=== PATIENT | female | born 1990 | race Caucasian/White ===

== ENCOUNTER 2017-05-04 07:01 | Emergency (ER) | payer SELFPAY ==
[2017-05-04 07:16] VITALS: BP 133/80
[2017-05-04] MEDS ORDERED: CEPHALEXIN 250 MG CAPSULE PO STA (07:24)
[2017-05-04] MEDS ORDERED: LIDOCAINE-EPINEPH-TETRACAINE 3 ML SYRINGE TOP STA (07:25)
--- NOTE | 2017-05-04 07:27 | ED Physician Documentation ---
History of Present Illness - Stated complaint Stated Complaint: TOE PX - Chief complaint Chief Complaint: Ext Problem - Additonal information Additional information: hx from pt 26 y/o f ingrown right toenail now infected denies preg Review of Systems Constitutional: denies: Fever, Chills : denies: Now EGA Musculoskeletal: reports: Extremity pain PD PAST MEDICAL HISTORY - Past Medical History Past Medical History: No - Past Surgical History Past Surgical History: No - Present Medications Home Medications: Ambulatory Orders Medication Instructions Recorded Confirmed Cephalexin [Keflex] 500 mg PO Q6H #28 capsule 05/04/17 Ibuprofen [Motrin] 400 mg PO Q6H PRN #30 tablet 05/04/17 - Allergies Allergies/Adverse Reactions: Allergies Allergy/AdvReac Type Severity Reaction Status Date / Time No Known Drug Allergies Allergy Verified 05/04/17 07:16 - Social History Does the pt smoke?: No Smoking Status: Former smoker PD ED PE NORMAL - Vitals Vital signs reviewed: Yes - Cardiac Cardiac: RRR - Respiratory Respiratory: No respiratory distress, Clear bilaterally - Extremities Extremities: Other (R great toe medial paronychia with surrounding erythema and swelling to distal toe, MSV intact) Results - Vitals Vitals: Vital Signs - 24 hr 05/04/17 07:12 Temperature 37.2 C Heart Rate 94 Respiratory 18 Rate Blood Pressure 133/80 H O2 Saturation 97 Oxygen O2 Source Room air PD MEDICAL DECISION MAKING - ED course ED course: applied LET and then lifted cuticle with scalpel to release some purlent drainage which was cultured - pt tolerated well Departure - Departure Disposition: 01 Home, Self Care Clinical Impression: Ingrown right greater toenail Condition: Good Instructions: ED Toenail Ingrown Infec Abx Onl Prescriptions: Cephalexin [Keflex] 500 mg PO Q6H #28 capsule Ibuprofen [Motrin] 400 mg PO Q6H PRN #30 tablet PRN Reason: Pain Comments: Soak the toe in soapy water and gently push the cuticle back from the nail to release any drainage. And please follow up with your PMD to get your blood pressure rechecked - it was high today Forms: Activity restrictions
[2017-05-04] MEDS ORDERED: LIDOCAINE-EPINEPH-TETRACAINE 3 ML SYRINGE TOP ONE (07:47)
[2017-05-04] MEDS ORDERED: CEPHALEXIN 250 MG CAPSULE PO ONE (07:48)
== END 2017-05-04 09:34 | disposition home or self-care (01) ==
LOC: EDBD → ED 07:01
DX: L60.0 Ingrowing nail (principal); L03.031 Cellulitis of right toe; Z87.891 Personal history of nicotine dependence
CPT/HCPCS: 87070; 87181; 87205; 99283; A9270

== ENCOUNTER 2017-05-14 19:14 | Emergency (ER) | payer SELFPAY ==
[2017-05-14] MEDS ORDERED: BUFFERED LIDOCAINE 10 ML SYRINGE ONE (20:52)
--- NOTE | 2017-05-14 20:53 | ED Physician Documentation ---
PD HPI WOUND RECHECK - Stated complaint Stated Complaint: TOE INFECTION - Chief complaint Chief Complaint: Wound - Histroy obtained from History obtained from: Patient - History of Present Illness Location: Other (Seen here about a week ago for a left ingrown great toenail and placed on Keflex but she is no better. Pain is moderate.) Review of Systems Constitutional: reports: Reviewed and negative Cardiac: reports: Chest pain / pressure Respiratory: reports: Reviewed and negative PD PAST MEDICAL HISTORY - Past Medical History Past Medical History: No - Past Surgical History Past Surgical History: No - Present Medications Home Medications: Ambulatory Orders Medication Instructions Recorded Confirmed Cephalexin [Keflex] 500 mg PO Q6H #28 capsule 05/04/17 Ibuprofen [Motrin] 400 mg PO Q6H PRN #30 tablet 05/04/17 Cephalexin [Keflex] 500 mg PO QID #40 capsule 05/14/17 - Allergies Allergies/Adverse Reactions: Allergies Allergy/AdvReac Type Severity Reaction Status Date / Time No Known Drug Allergies Allergy Verified 05/14/17 19:18 - Social History Does the pt smoke?: No Smoking Status: Never smoker Does the pt drink ETOH?: No Does the pt have substance abuse?: No - Immunizations Immunizations are current?: No - POLST Patient has POLST: No PD ED PE NORMAL - Vitals Vital signs reviewed: Yes - General General: Alert and oriented X 3, No acute distress - Extremities Extremities: Other (Lateral ingrown left great toenail with infection) - Neuro Neuro: Alert and oriented X 3, Normal speech - Psych Psych: Normal mood, Normal affect Results - Vitals Vitals: Vital Signs - 24 hr 05/14/17 19:16 Temperature 36.5 C Heart Rate 78 Respiratory 18 Rate Blood Pressure 112/61 O2 Saturation 100 Oxygen O2 Source Room air Procedures - General procedure General procedure: After verbal consent to the left great toe was blocked with buffered lidocaine in standard fashion with excellent anesthesia in the lateral 1/5 of the nail was removed using electrocautery and blunt dissection and the base was cauterized with silver nitrate. The patient tolerated this very well. Departure - Departure Disposition: 01 Home, Self Care Clinical Impression: Ingrown left greater toenail Condition: Good Record reviewed to determine appropriate education?: Yes Instructions: ED Ingrown Toenail Excised Prescriptions: Cephalexin [Keflex] 500 mg PO QID #40 capsule Comments: Call your doctor to arrange a follow-up appointment, make the next available appointment. In the interim, return anytime if worse or if new symptoms develop.
[2017-05-14 21:24] VITALS: BP 109/63
== END 2017-05-14 21:28 | disposition home or self-care (01) ==
LOC: ED 19:14
DX: L60.0 Ingrowing nail (principal)
CPT/HCPCS: 99283

== ENCOUNTER 2018-04-26 09:07 | Outpatient (CLI) | payer MEDICAID ==
--- NOTE | 2018-04-26 12:43 | Ultrasound Report ---
Reason: ENCOUNTER FOR TEST, RESULT POSITIVE Procedure Date: 04/26/2018 Accession Number: [id number] / [id number] Procedure: US - OB First Trimester CPT Code: FULL RESULT: EXAM: FIRST TRIMESTER OBSTETRIC ULTRASOUND (Less than 11 weeks) EXAM DATE: 04/26/2018 10:14 AM. CLINICAL HISTORY: Encounter for test, result positive. LMP: 02/02/2018. COMPARISONS: None. TECHNIQUE: Transabdominal ultrasound examination with static image documentation. CLINICAL DATES: EGA 11 weeks 6 days with RITA 11/09/2018 based on LMP. ASSESSMENT: Gestational Sac: Single intrauterine. Mean gestational sac diameter: 4.8 mm = greater than 10 weeks. Embryo: CRL (crown-rump length) 5.1 mm = 11 weeks 5 days. Cardiac activity: 174 beats per minute. Yolk sac: 3.1 mm. Amniotic fluid: Not accurately assessed at this gestational age. Early placenta: Posterior. Other: No perigestational fluid collection demonstrated. MATERNAL STRUCTURES: Uterus: Anteverted. Unremarkable. Cervix: Closed. Right Ovary/Adnexa: Not seen. Left Ovary/Adnexa: The ovary measures 3.4 x 2.2 x 2.5 cm, volume 9.7 cc with a 1.5 x 1.7 x 1.5 cm cyst. Free Fluid: None. Unremarkable. Other: None. IMPRESSION: 1. Single viable intrauterine at EGA 11 weeks 5 days with RITA 11/10/2018 based on crown-rump length, which is concordant with clinical dates. 2. Assigned dating is RITA 11 weeks 5 days based on current ultrasound. RADIA
== END 2018-04-26 09:08 | disposition home or self-care (01) ==
LOC: DI 09:07
PROVIDERS: ATTEND Obstetrics & Gynecology
DX: Z32.01 Encounter for pregnancy test, result positive (principal)
CPT/HCPCS: 76801

== ENCOUNTER 2018-05-01 16:42 | Outpatient (CLI) | payer MEDICAID ==
[2018-05-01 17:13] LABS: BASOPHILS % (AUTO) 0.4 %; EOSINOPHILS # (AUTO) 0.1 10^3/uL (0.0-0.7); EOSINOPHILS % (AUTO) 1.2 %; HGB - HEMOGLOBIN 12.6 g/dL (12.0-16.0); LYMPHOCYTES # (AUTO) 2.8 10^3/uL (1.5-3.5); LYMPHOCYTES % (AUTO) 26.8 %; MEAN CORPUSCULAR HEMOGLOBIN 27.7 pg (27.0-31.0); MEAN CORPUSCULAR HGB CONC 34.3 g/dL (32.0-36.0); MEAN CORPUSCULAR VOLUME 80.7 fL (81.0-99.0); MEAN PLATELET VOLUME 8.1 fL (7.9-10.8); MONOCYTES # (AUTO) 0.9 10^3/uL (0.0-1.0); MONOCYTES % (AUTO) 8.5 %; NEUTROPHILS # (AUTO) 6.6 10^3/uL (1.5-6.6); NEUTROPHILS % (AUTO) 63.1 %; PLT - PLATELET COUNT 186 10^3/uL (130-450); RED BLOOD COUNT 4.55 10^6/uL (4.20-5.40); WHITE BLOOD COUNT 10.4 x10^3/uL (4.8-10.8)
[2018-05-01 17:16] LABS: BILIRUBIN,URINE NEGATIVE (NEGATIVE); GLUCOSE, URINE (UA) NEGATIVE (NEGATIVE); KETONES,URINE (UA) NEGATIVE (NEGATIVE); LEUKOCYTE ESTERASE, URINE LARGE (NEGATIVE); NITRITE,URINE NEGATIVE (NEGATIVE); OCCULT BLOOD,URINE LARGE (NEGATIVE); PROTEIN,URINE NEGATIVE (NEGATIVE); UROBILINOGEN,URINE 0.2 (NORMAL) E.U./dL (NORMAL)
[2018-05-01 17:21] LABS: CLARITY,URINE SL. CLOUDY (CLEAR)
[2018-05-01 17:28] LABS: BACTERIA,URINE Many /HPF (None Seen); RBC,URINE TNTC /HPF (0-5); SQUAMOUS EPITHELIAL CELL,UR FEW Squamous (<= Few); WBC CLUMPS,URINE PRESENT
[2018-05-02 10:57] LABS: HEPATITIS B SURFACE ANTIGEN NON-REACTIVE (NON-REACTIVE)
[2018-05-02 13:48] LABS: HEPATITIS C ANTIBODY NON-REACTIVE (NON-REACTIVE)
[2018-05-02 14:11] LABS: HIV AG/AB 4TH GEN NON-REACTIVE (NON-REACTIVE)
== END 2018-05-01 16:43 | disposition home or self-care (01) ==
LOC: LAB 16:42
PROVIDERS: ATTEND Registered Nurse
DX: Z36.9 Encounter for antenatal screening, unspecified (principal)
CPT/HCPCS: 36415; 81001; 81599; 85025; 86592; 86762; 86803; 86850; 86900; 86901; 87340; 87389

== ENCOUNTER 2018-06-01 08:00 | Outpatient (CLI) | payer MEDICAID | END 2018-06-01 08:01 | disposition home or self-care (01) | LOC: LAB.R 08:00 | PROVIDERS: ATTEND Nurse Practitioner Obstetrics & Gynecology | DX: R31.9 Hematuria, unspecified (principal) | CPT/HCPCS: 87086 ==

== ENCOUNTER 2018-06-18 12:21 | Outpatient (CLI) | payer MEDICAID ==
--- NOTE | 2018-06-18 16:11 | Ultrasound Report ---
Reason: ENCTR FOR SCREENING Procedure Date: 06/18/2018 Accession Number: [id number] / [id number] Procedure: US - OB Detailed Eval CPT Code: FULL RESULT: EXAM: COMPLETE OBSTETRICAL ULTRASOUND EXAM DATE: 06/18/2018 03:26 PM. CLINICAL HISTORY: anatomic survey. COMPARISON: 04/26/2018. TECHNIQUE: Real-time sonographic evaluation of the fetus performed by the laminator preforms. Multiple sales representative womens health static images were saved for review. DATING: Established EGA 19 weeks 3 days with RITA 11/09/2018 based on LMP. EGA 19 weeks 2 days with RITA 11/10/2018based on initial ultrasound 04/26/2018. EGA 19 weeks 6 days with RITA 11/06/2018based on the current ultrasound. GENERAL EVALUATION Mckee . Cardiac activity: 147 bpm. movement: Visualized. Presentation: Variable. Placenta: Posterior fundal position. No evidence for previa. Umbilical cord: Three-vessel cord not clearly identified. Eccentric placental cord origin, between 1 and 2 cm from placental edge. Amniotic fluid: Subjectively normal. SAM:18.1 cm. MVP 5.8 cm. BIOMETRY Bi-Parietal Diameter (BPD): 4.78 cm, 23 weeks 3 days. Head Circumference (HC): 17.2 cm, 19 weeks 5 days. Abdominal Circumference (AC): 15.2 cm, 20 weeks 4 days. Femur Length (FL): 2.8 cm, 18 weeks 4 days. Estimated Weight: 310 g, percentile for weeks/days. ANATOMY The intracranial structures, profile, face/nose/lips, spine, 4 chamber heart and outflow tracts, stomach, abdominal wall and cord insertion, diaphragm, kidneys, bladder, and extremities were visualized and demonstrate no abnormality. MATERNAL STRUCTURES Uterus: Unremarkable. Cervix: Long and closed. Transabdominal length 4.4 cm. Right ovary/adnexa: Unremarkable. Left ovary/adnexa: Unremarkable. Free fluid: None. IMPRESSION: 1. Mckee live intrauterine with gestational age 19 weeks 3 days. Based on LMP. 2. Estimated weight is within expected limits for assigned dating. 3. Normal anatomic survey. No anatomic abnormalities are detected at this time. 4. Eccentric cord insertion noted, with three-vessel cord not clearly identified on today's exam. RADIA
== END 2018-06-18 12:22 | disposition home or self-care (01) ==
LOC: DI 12:21
PROVIDERS: ATTEND Nurse Practitioner Obstetrics & Gynecology
DX: Z36.9 Encounter for antenatal screening, unspecified (principal)
CPT/HCPCS: 76811

== ENCOUNTER 2018-07-20 14:16 | Outpatient (CLI) | payer MEDICAID | END 2018-07-20 23:59 | LOC: LAB.R 14:16 | PROVIDERS: ATTEND Nurse Practitioner Obstetrics & Gynecology | DX: Z11.3 Encounter for screening for infections with a predominantly sexual mode of transmission (principal) | CPT/HCPCS: 87491; 87591 ==

== ENCOUNTER 2018-07-22 07:24 | Outpatient (CLI) | payer MEDICAID ==
[2018-07-22 08:53] LABS: BASOPHILS % (AUTO) 0.3 %; EOSINOPHILS # (AUTO) 0.2 10^3/uL (0.0-0.7); EOSINOPHILS % (AUTO) 1.8 %; HGB - HEMOGLOBIN 11.9 g/dL (12.0-16.0); LYMPHOCYTES # (AUTO) 2.4 10^3/uL (1.5-3.5); LYMPHOCYTES % (AUTO) 27.1 %; MEAN CORPUSCULAR HEMOGLOBIN 29.4 pg (27.0-31.0); MEAN CORPUSCULAR HGB CONC 34.4 g/dL (32.0-36.0); MEAN CORPUSCULAR VOLUME 85.3 fL (81.0-99.0); MEAN PLATELET VOLUME 8.5 fL (7.9-10.8); MONOCYTES # (AUTO) 0.5 10^3/uL (0.0-1.0); MONOCYTES % (AUTO) 5.8 %; NEUTROPHILS # (AUTO) 5.7 10^3/uL (1.5-6.6); PLT - PLATELET COUNT 162 10^3/uL (130-450); RED BLOOD COUNT 4.06 10^6/uL (4.20-5.40); RED CELL DISTRIBUTION WIDTH 16.7 % (12.0-15.0); WHITE BLOOD COUNT 8.8 x10^3/uL (4.8-10.8)
== END 2018-07-22 07:25 | disposition home or self-care (01) ==
LOC: LAB 07:24
PROVIDERS: ATTEND Nurse Practitioner Obstetrics & Gynecology
DX: Z36.89 Encounter for other specified antenatal screening (principal)
CPT/HCPCS: 36415; 82950; 85025; 86850

== ENCOUNTER 2018-07-23 08:01 | Outpatient (CLI) | payer MEDICAID | END 2018-07-23 08:02 | disposition home or self-care (01) | LOC: LAB 08:01 | PROVIDERS: ATTEND Nurse Practitioner Obstetrics & Gynecology | DX: O99.810 Abnormal glucose complicating pregnancy (principal) | CPT/HCPCS: 36415; 82951; 82952 ==

== ENCOUNTER 2018-08-12 09:23 | Outpatient (CLI) | payer MEDICAID ==
--- NOTE | 2018-08-12 11:42 | Ultrasound Report ---
Reason: Procedure Date: 08/12/2018 Accession Number: [id number] / [id number] Procedure: US - OB F/U or Repeat CPT Code: FULL RESULT: EXAM: COMPLETE OBSTETRICAL ULTRASOUND EXAM DATE: 08/12/2018 09:52 AM. CLINICAL HISTORY: Completion anatomy survey. Previously incomplete evaluation of the cord. COMPARISON: 06/18/2018. TECHNIQUE: Real-time sonographic evaluation of the fetus performed by the shift mgr. Multiple veterans contact representative static images were saved for review. DATING: Established EGA 27 weeks 2 days with RITA 11/09/2018 based on the referring provider. GENERAL EVALUATION Mckee . Cardiac activity: 140 bpm. movement: Visualized. Presentation: Cephalic. Placenta: Posterior position. No evidence for previa. Umbilical cord: 3 vessel cord. Central placental cord origin. Amniotic fluid: SAM 13.8 MVP 4.3 cm. ANATOMY Normal 3 vessel cord. MATERNAL STRUCTURES Uterus: Visualized portions are unremarkable. Free fluid: None. IMPRESSION: 1. Mckee live intrauterine with gestational age 27 weeks 2 days based on obstetric provider information. 2. Normal 3 vessel cord. RADIA
== END 2018-08-12 09:24 | disposition home or self-care (01) ==
LOC: DI 09:23
PROVIDERS: ATTEND Nurse Practitioner Obstetrics & Gynecology
DX: Z33.1 Pregnant state, incidental (principal)
CPT/HCPCS: 76816

== ENCOUNTER 2018-10-01 11:10 | Outpatient (CLI) | payer MEDICAID ==
--- NOTE | 2018-10-01 16:24 | Ultrasound Report ---
Reason: UTERINE SIZE DATE DISCREPANCY,ANTEPARTUM,UNSPECIFI Procedure Date: 10/01/2018 Accession Number: [id number] / [id number] Procedure: US - OB F/U or Repeat CPT Code: FULL RESULT: EXAM: FOLLOW-UP OBSTETRICAL ULTRASOUND EXAM DATE: 10/01/2018 12:45 PM. CLINICAL HISTORY: UTERINE SIZE DATE DISCREPANCY,ANTEPARTUM,UNSPECIFI. COMPARISON: 04/26/2018. TECHNIQUE: Real-time sonographic evaluation of the fetus performed by the director technical. Multiple claims customer service representative static images were saved for review. DATING: Established EGA 34 weeks 3 days with RITA 11/09/2018 based on LMP. EGA 34 weeks 2 days with RITA 11/10/2018 based on prior ultrasound of 04/26/2018. EGA 35 weeks 1 day with RITA 11/04/2018 based on the current ultrasound. GENERAL EVALUATION Mckee . Cardiac activity: 159 bpm. movement: Present Presentation: Cephalic. Placenta: Posterior fundal position. Amniotic fluid: Normal. SAM 16 cm. MVP 6 cm. BIOMETRY Bi-Parietal Diameter (BPD): 9.6 cm, 39 weeks 2 days Head Circumference (HC): 31.7 cm, 35 weeks 4 days Abdominal Circumference (AC): 30.7 cm, 34 weeks 4 days Femur Length (FL): 6.8 cm, 34 weeks 5 days Estimated Weight: 2625 g, 68th percentile for 35 weeks 1 day. ANATOMY Not assessed today. MATERNAL STRUCTURES Not assessed today IMPRESSION: 1. Mckee intrauterine with gestational age 34 weeks 3 days based on LMP. 2. Estimated weight is within expected limits for assigned dating. 3. Normal interval growth compared to 04/26/2018. EMANUELA
== END 2018-10-01 11:11 | disposition home or self-care (01) ==
LOC: DI 11:10
PROVIDERS: ATTEND Nurse Practitioner Obstetrics & Gynecology
DX: O26.849 Uterine size-date discrepancy, unspecified trimester (principal); Z3A.34 34 weeks gestation of pregnancy
CPT/HCPCS: 76816

== ENCOUNTER 2018-10-16 08:00 | Outpatient (CLI) | payer MEDICAID | END 2018-10-16 23:59 | disposition home or self-care (01) | LOC: LAB.R 08:00 | PROVIDERS: ATTEND Registered Nurse | DX: Z34.90 Encounter for supervision of normal pregnancy, unspecified, unspecified trimester (principal) | CPT/HCPCS: 87480; 87491; 87510; 87591; 87660; 87797 ==

== ENCOUNTER 2018-10-18 08:34 | Outpatient (CLI) | payer MEDICAID ==
[2018-10-18 09:02] LABS: BILIRUBIN,URINE NEGATIVE (NEGATIVE); GLUCOSE, URINE (UA) NEGATIVE (NEGATIVE); KETONES,URINE (UA) NEGATIVE (NEGATIVE); LEUKOCYTE ESTERASE, URINE SMALL (NEGATIVE); NITRITE,URINE NEGATIVE (NEGATIVE); OCCULT BLOOD,URINE NEGATIVE (NEGATIVE); PH,URINE 6.5 PH (5.0-7.5); PROTEIN,URINE NEGATIVE (NEGATIVE); UROBILINOGEN,URINE 0.2 (NORMAL) E.U./dL (NORMAL)
[2018-10-18 09:04] LABS: BASOPHILS % (AUTO) 0.3 %; EOSINOPHILS # (AUTO) 0.1 10^3/uL (0.0-0.7); EOSINOPHILS % (AUTO) 1.7 %; HGB - HEMOGLOBIN 11.8 g/dL (12.0-16.0); LYMPHOCYTES # (AUTO) 2.5 10^3/uL (1.5-3.5); LYMPHOCYTES % (AUTO) 33.8 %; MEAN CORPUSCULAR HGB CONC 32.8 g/dL (32.0-36.0); MEAN CORPUSCULAR VOLUME 82.4 fL (81.0-99.0); MEAN PLATELET VOLUME 9.3 fL (7.9-10.8); MONOCYTES # (AUTO) 0.6 10^3/uL (0.0-1.0); MONOCYTES % (AUTO) 8.2 %; NEUTROPHILS # (AUTO) 4.2 10^3/uL (1.5-6.6); PLT - PLATELET COUNT 139 10^3/uL (130-450); RED BLOOD COUNT 4.38 10^6/uL (4.20-5.40); RED CELL DISTRIBUTION WIDTH 17.3 % (12.0-15.0); WHITE BLOOD COUNT 7.4 x10^3/uL (4.8-10.8)
[2018-10-18 09:10] LABS: CREATININE,URINE 53.5 mg/dL; PROTEIN/CREATININE RATIO,URINE 0.1 (<=0.2)
[2018-10-18 09:13] LABS: CREATININE 0.4 mg/dL (0.4-1.0); URIC ACID 4.1 mg/dL (2.6-7.2)
[2018-10-18 09:29] LABS: BACTERIA,URINE Rare /HPF (None Seen); CLARITY,URINE HAZY (CLEAR); RBC,URINE None Seen /HPF (0-5); SQUAMOUS EPITHELIAL CELL,UR MOD Squamous (<= Few)
[2018-10-20 14:15] LABS: HEPATITIS C ANTIBODY NON-REACTIVE (NON-REACTIVE)
[2018-10-20 15:12] LABS: HIV AG/AB 4TH GEN NON-REACTIVE (NON-REACTIVE)
== END 2018-10-18 08:35 | disposition home or self-care (01) ==
LOC: LAB 08:34
PROVIDERS: ATTEND Registered Nurse
DX: Z34.90 Encounter for supervision of normal pregnancy, unspecified, unspecified trimester (principal); R03.0 Elevated blood-pressure reading, without diagnosis of hypertension
CPT/HCPCS: 36415; 81001; 81599; 82565; 82570; 83615; 84156; 84450; 84550; 85025; 85027; 86803; 87086; 87389

== ENCOUNTER 2018-10-30 10:06 | Outpatient (CLI) | payer MEDICAID ==
[2018-10-30 10:48] LABS: BASOPHILS % (AUTO) 0.4 %; EOSINOPHILS # (AUTO) 0.1 10^3/uL (0.0-0.7); EOSINOPHILS % (AUTO) 1.8 %; LYMPHOCYTES # (AUTO) 2.6 10^3/uL (1.5-3.5); LYMPHOCYTES % (AUTO) 34.3 %; MEAN CORPUSCULAR HEMOGLOBIN 27.7 pg (27.0-31.0); MEAN CORPUSCULAR HGB CONC 33.3 g/dL (32.0-36.0); MEAN PLATELET VOLUME 9.1 fL (7.9-10.8); MONOCYTES # (AUTO) 0.7 10^3/uL (0.0-1.0); MONOCYTES % (AUTO) 8.8 %; NEUTROPHILS # (AUTO) 4.1 10^3/uL (1.5-6.6); NEUTROPHILS % (AUTO) 54.7 %; PLT - PLATELET COUNT 138 10^3/uL (130-450); RED BLOOD COUNT 4.33 10^6/uL (4.20-5.40); WHITE BLOOD COUNT 7.5 x10^3/uL (4.8-10.8)
[2018-10-30 11:32] LABS: CREATININE,URINE 105.1 mg/dL; PROTEIN/CREATININE RATIO,URINE 0.2 (<=0.2)
[2018-10-30 12:03] VITALS: BP 120/76
== END 2018-10-30 12:15 | disposition home or self-care (01) ==
LOC: WFO 10:06 → FBP 10:07 → WFO 12:15
PROVIDERS: ATTEND Registered Nurse
DX: O16.3 Unspecified maternal hypertension, third trimester (principal); Z3A.38 38 weeks gestation of pregnancy
CPT/HCPCS: 36415; 59025; 82570; 83615; 84156; 84450; 84550; 85025

== ENCOUNTER 2018-11-02 08:37 | Inpatient (IN) | payer MEDICAID ==
[2018-11-02] MEDS ORDERED: OXYTOCIN/SODIUM CHLORIDE 500 ML IV PRN (08:52)
[2018-11-02] MEDS ORDERED: SODIUM CHLORIDE FLUSH 0.9% 10 ML SYRINGE IVP PRN (08:52)
[2018-11-02] MEDS ORDERED: ONDANSETRON 4 MG/2 ML VIAL IVP PRN (08:52)
[2018-11-02] MEDS ORDERED: fentaNYL 100 MCG/2 ML VIAL IVP PRN (08:52)
--- NOTE | 2018-11-02 08:59 | HISTORY & PHYSICAL EXAMINATION ---
Admit History - Visit Reason Visit Reason: Other (logistic induction of labor @ 39 weeks' gestation, per pt request) - : 1 Parity: 0 Premature: 0 Ectopic: 0 : 0 Care: positive: [facility] Risk/History: positive: None Complications This : positive: None Smoking Status: Never smoker - Mother's Labs Mother's Blood Type: positive: A Mother's RH: positive: Positive GBS: positive: Group B Step Negative Rubella Status: positive: Immune Meds/Allgy - Home Medications Home Medications: Ambulatory Orders Medication Instructions Recorded Confirmed Cephalexin [Keflex] 500 mg PO Q6H #28 capsule 05/04/17 Ibuprofen [Motrin] 400 mg PO Q6H PRN #30 tablet 05/04/17 Cephalexin [Keflex] 500 mg PO QID #40 capsule 05/14/17 - Allergies Allergies/Adverse Reactions: Allergies Allergy/AdvReac Type Severity Reaction Status Date / Time No Known Drug Allergies Allergy Verified 05/14/17 19:18 Review of Systems - Constitutional Constitutional: reports: Fatigue. denies: Fever, Chills - Eyes Eyes: denies: Blurred vision, Spots in vision, Dipolpia - Cardiovascular Cariovascular: reports: Edema. denies: Irregular heart rate, Palpitations, Chest pain - Respiratory Respiratory: reports: SOB with exertion. denies: Cough, SOB at rest - Gastrointestinal Gastrointestinal: denies: Abdominal pain, Abdominal distention, Constipation, Diarrhea, Nausea, Vomiting - Musculoskeletal Musculoskeletal: reports: Back pain. denies: Muscle pain, Muscle aches - Integumentary Integumentary: denies: Rash, Pruritis, Lesions - Neurological Neurological: denies: General weakness, Focal weakness, Headache, Dizziness - Psychiatric Psychiatric: denies: Depression, Anxiety - All Other Systems All Other Systems: reports: Reviewed and negative Physical - Abdominal Exam Vital Signs: BP 115/73, HR 92 RR 18 Contraction Frequency (min/apart): rare - Monitoring Heart Rate Baseline: 145 Strip Review: positive: Category I - Presentation Presentation: positive: Vertex - Vaginal Exam Membranes: positive: Membranes intact Dilation (in cm): 2 Effacement (%): 70 Station: positive: 0 Cervical Position: positive: Posterior - Speculum Exam Speculum Exam Performed: positive: No Findings: negative: Gross leak - Other Notes Labor Progress Note/Additional Text: Rebekah Jacki Duran is a 28 y/o @ 39 weeks' gestation by first trimester US who received consistent, regular care beginning in the first trimester. Her care was complicated by first trimester trichomoniasis, which was treated effectively for both her & her partner, and which resulted in negative SAGRARIO, and by intermittent BP elevations which have not been persistent and which have not been associated w/ any s/sx of PET; she has had antepartum surveillance for the intermittently elevated BPs, both at [facility] & at [facility] when she could not be accommodated in this setting, and all has been reassuring. Her screening labs have all been WNL, including negative GBS screening @ 36 weeks' gestation. She presents today for a scheduled induction of labor, which she discussed initially w/ Suze Figueroa CNM, and which she discussed more recently w/ myself. Full PARQ was held & she is aware of option of ongoing expectant management and lack of medical rationale for intervention. Informed consent was obtained for misoprostol induction of labor & she desires to proceed. PMH: UNREMARKABLE PSH: none OBhx: Primiparous GYNhx: trichomoniasis 2018 w/ effective tx & negative SAGRARIO, no other hx STI, no hx abnormal pap; normal 2018 Sochx: to Clifford, denies DV; unemployed, denies financial concerns; ESL (Haitian is her first language)--highly proficient in Armenian but may benefit from use of creative consultant phone, as would her ; denies ETOH/tobacco/drugs Famhx: non-contributory Plan for Labor - Plan For Labor I expect patient to be DC'd or transferred within 96 hours.: Yes Plan for Labor: 1. Admit for preinduction cervical ripening w/ misoprostol 2. CBC/CMP/clot to hold/IV insert; NO MAINTENANCE FLUIDS unless NPO 3. Misoprostol 50mcg BC q 4 hours 4. Assess cervical status w/ clinical change
[2018-11-02] MEDS: miSOPROStol 100 MCG TABLET BC SCH ×4 (09:41→22:42)
[2018-11-02] MEDS: SODIUM CHLORIDE FLUSH 0.9% 10 ML SYRINGE IVP SCH ×2 (09:42→17:10)
[2018-11-02 09:54] LABS: BASOPHILS % (AUTO) 0.4 %; EOSINOPHILS # (AUTO) 0.1 10^3/uL (0.0-0.7); EOSINOPHILS % (AUTO) 1.3 %; HGB - HEMOGLOBIN 11.9 g/dL (12.0-16.0); LYMPHOCYTES # (AUTO) 2.4 10^3/uL (1.5-3.5); MEAN CORPUSCULAR HEMOGLOBIN 27.7 pg (27.0-31.0); MEAN CORPUSCULAR HGB CONC 33.2 g/dL (32.0-36.0); MEAN CORPUSCULAR VOLUME 83.4 fL (81.0-99.0); MEAN PLATELET VOLUME 9.3 fL (7.9-10.8); MONOCYTES # (AUTO) 0.5 10^3/uL (0.0-1.0); MONOCYTES % (AUTO) 6.7 %; NEUTROPHILS # (AUTO) 4.4 10^3/uL (1.5-6.6); NEUTROPHILS % (AUTO) 59.6 %; PLT - PLATELET COUNT 138 10^3/uL (130-450); RED CELL DISTRIBUTION WIDTH 18.6 % (12.0-15.0); WHITE BLOOD COUNT 7.4 x10^3/uL (4.8-10.8)
[2018-11-02 10:03] LABS: ALBUMIN 3.2 g/dL (3.2-5.5); ALBUMIN/GLOBULIN RATIO 1.1 (1.0-2.2); BILIRUBIN,TOTAL 0.4 mg/dL (0.2-1.0); CALCIUM 9.2 mg/dL (8.5-10.3); CREATININE 0.6 mg/dL (0.4-1.0); TOTAL PROTEIN 6.2 g/dL (6.7-8.2)
[2018-11-02 10:21] LABS: BILIRUBIN,URINE NEGATIVE (NEGATIVE); GLUCOSE, URINE (UA) NEGATIVE (NEGATIVE); KETONES,URINE (UA) NEGATIVE (NEGATIVE); LEUKOCYTE ESTERASE, URINE NEGATIVE (NEGATIVE); NITRITE,URINE NEGATIVE (NEGATIVE); OCCULT BLOOD,URINE NEGATIVE (NEGATIVE); PROTEIN,URINE NEGATIVE (NEGATIVE); UROBILINOGEN,URINE 0.2 (NORMAL) E.U./dL (NORMAL)
[2018-11-02 10:23] LABS: CREATININE,URINE 77.8 mg/dL; PROTEIN/CREATININE RATIO,URINE 0.1 (<=0.2)
[2018-11-02 10:24] LABS: CLARITY,URINE CLEAR (CLEAR)
--- NOTE | 2018-11-02 12:31 | PROVIDER PROGRESS NOTE ---
Labor Progress Note - Uterine Monitoring Uterine Monitoring Mode: positive: External toco Contraction Frequency (min/apart): 2-6 Contraction Intensity: positive: Mild Uterine Resting Tone: positive: Soft - Monitoring Monitor Mode: positive: External ultrasound Heart Rate Baseline: 145 Heart Rate Variability: positive: Moderate (6-25 bmp) Accelerations: positive: Present, 15x15 Decelerations: positive: None Strip Review: positive: Category I - Labor Progress Note Labor Progress Note/Additional Text: S: Rebekah is doing well. She reports occasional sensation of cramping & some abdominal tightening. She denies true discomfort. She denies LOF/VB. She does not desire any analgesia @ this time. She is tolerating a regular diet & is tired of lying in bed. Clifford is present @ the bedside & is involved & very supportive. O: AAOx3, NAD WA gravid female VSS EFM: BL 145bpm, +accels, no decels, mod daniela TOCO: UCs erratic q 2-6 min, palp mod SVE deferred A: 28 y/o @ 39 weeks' gestation by first trimester US Preinduction cervical ripening for IOL secondary to pt request 39+ weeks, s/p 1 dose of 50mcg buccal misoprostol GBS negative w/ IBOW FHTs cat I Adequate pain control w/o analgesia/anesthesia P: 1. Continue buccal misoprostol as ordered 2. reviewed relief measures for discomfort, diversionary activity 3. reviewed optimal maternal positioning 4. pt aware of all pain management options, will request as desired 5. SVE only if clearly clinically indicated
[2018-11-02] MEDS ORDERED: DOCUSATE SODIUM 250 MG CAPSULE PO ONE (14:30)
[2018-11-02] MEDS ORDERED: POLYETHYLENE GLYCOL 3350 17 GM PACKET PO PRN (16:18)
--- NOTE | 2018-11-02 16:49 | PROVIDER PROGRESS NOTE ---
Labor Progress Note - Uterine Monitoring Uterine Monitoring Mode: positive: External toco Contraction Frequency (min/apart): 2-6 Contraction Intensity: positive: Mild Uterine Resting Tone: positive: Soft - Monitoring Monitor Mode: positive: External ultrasound Heart Rate Baseline: 140 Heart Rate Variability: positive: Moderate (6-25 bmp) Accelerations: positive: Present, 15x15 Decelerations: positive: None Strip Review: positive: Category I - Vaginal Exam Dilation (in cm): deferred secondary to no indication - Labor Progress Note Labor Progress Note/Additional Text: S: Rebekah reports mild cramping & a desire to defecate. She has been constipated x4 days & desires stool softener for use now. Her friends & Clifford are present @ the bedside & are involved & very supportive. O: AAox3, NAD WA gravid female VSS EFM: Bl 140bpm, +accels, no decels, mod daniela TOCO: UCs q 2-6 minutes, palp mild SVE deferred A: 28 y/o @ 39 weeks' gestation by first trimester US Preinduction cervical ripening for IOL, logistic, per pt request GBS negative, IBOW, afebrile s/p 2 doses buccal misoprostol, not in labor, erratic uterine contractions FHTs cat I Adequate pain control w/o analgesia/anesthesia P: 1. Reviewed options for management going forward, plans 3rd dose of misoprostol & plans to decide thereafter 2. May elect to sleep overnight or continue misoprostol or alternate cervical ripening method: aware of cervidil, peterson bulb options 3. Aware of pain management options, will request as desired 4. colace 250mg po now 5. Reviewed plan of care w/ pt, partner & RN @ bedside; all in agreement, without concerns
--- NOTE | 2018-11-02 22:43 | PROVIDER PROGRESS NOTE ---
Labor Progress Note - Uterine Monitoring Uterine Monitoring Mode: positive: External toco Contraction Frequency (min/apart): 2-5 Contraction Intensity: positive: Moderate Uterine Resting Tone: positive: Soft - Monitoring Monitor Mode: positive: External ultrasound Heart Rate Baseline: 140 Heart Rate Variability: positive: Moderate (6-25 bmp) Accelerations: positive: Present, 15x15 Decelerations: positive: None Strip Review: positive: Category I - Vaginal Exam Dilation (in cm): deferred - Labor Progress Note Labor Progress Note/Additional Text: S: Rebekah is generally comfortable, although she reports enough cramping w/ her uterine contractions that she expects she will have difficulty sleeping. She denies LOF/VB. She is hoping to be able to sleep this evening; she was able to have a bowel movement & feels better as a result O: AAOx3, NAD WA gravid female VSS EFM: BL 140 +accels, no decels, mod daniela TOCO: UCs q2-5 min SVE deferred secondary to no indication A: 28 y/o @ 39w0d by first trimester US, induction of labor per pt request Preinduction cervical ripening s/p 3 doses 50mcg buccal misoprostol, not in labor GBS neg, IBOW, afebrile FHTs cat I Adequate pain control w/o analgesia/anesthesia Desires rest P: 1. Reviewed all options for management @ this time; pt desires rest overnight; FHTs consistently Cat I, will d/c monitoring; BP stable, will d/c vitals overnight & check only if awake; will administer 50mg IM hydroxyzine for sleep, PARQ held 2. Reviewed labor physiology & possibility that she may enter spontaneous labor overnight 3. Encouraged maternal rest & reviewed optimal positioning 4. Reassess status in am & will determine optimal course of ongoing careplan @ that time; reassess earlier PRN 5. Reviewed plan of care w/ pt, partner & RN @ bedside; all in agreement, without concerns.
[2018-11-03] MEDS: SODIUM CHLORIDE FLUSH 0.9% 10 ML SYRINGE IVP SCH (03:35)
[2018-11-03] MEDS: miSOPROStol 100 MCG TABLET BC SCH ×2 (03:36→11:09)
[2018-11-03] MEDS ORDERED: LACTATED RINGERS 1,000 ML IV ONE (05:01)
[2018-11-03] MEDS ORDERED: LACTATED RINGERS 500 ML IV ONE ×2 (05:10→05:34)
[2018-11-03] MEDS ORDERED: BUPIVACAINE 0.25% PF 10 ML VIAL ONE (05:31)
[2018-11-03] MEDS ORDERED: fent/BUPIV 2 MCG/0.125% 250 ML EP ONE (05:31)
--- NOTE | 2018-11-03 05:31 | ANESTHESIA ---
Pre-Anesthesia VS, & Labs - Diagnosis Active Labor - Procedure Vaginal delivery Height 5 ft 5 in Weight (kg) 95.254 kg Body Mass Index 29.2 - NPO Other - Is Patient ?: Yes - Lab Results Current Lab Results: Laboratory Tests 11/02/18 09:35: Sodium 132 L, Potassium 3.6, Chloride 105, Carbon Dioxide 19 L, Anion Gap 8.0, BUN 13, Creatinine 0.6, Estimated GFR (MDRD) 120, Glucose 122 H, Calcium 9.2, Total Bilirubin 0.4, AST 22, ALT 15, Alkaline Phosphatase 149 H, Total Protein 6.2 L, Albumin 3.2, Globulin 3.0, Albumin/Globulin Ratio 1.1 11/02/18 09:35: WBC 7.4, RBC 4.30, Hgb 11.9 L, Hct 35.8 L, MCV 83.4, MCH 27.7, MCHC 33.2, RDW 18.6 H, Plt Count 138, MPV 9.3, Neut # (Auto) 4.4, Lymph # (Auto) 2.4, [place] # (Auto) 0.5, Eos # (Auto) 0.1, Baso # (Auto) 0.0, Absolute Nucleated RBC 0.00, Nucleated RBC % 0.0 Fish Bones: 11/02/18 09:35 11/02/18 09:35 Home Medications and Allergies Active Medications Acetaminophen (Tylenol) 650 mg PO Q6H PRN PRN Reason: Pain or Fever Docusate Sodium (Colace 100mg Capsule) 100 mg PO DAILY [facility] Fentanyl (Fentanyl) 50 mcg IVP Q1H PRN PRN Reason: PAIN Last Admin: 11/03/18 02:57 Dose: 50 mcg Oxytocin/Sodium Chloride (Pitocin/Sodium Chloride) 500 mls @ 999 mls/hr IV PRN PRN; Protocol PRN Reason: POST- HEMORR PREVENTION Lactated Ringer's (Lr) 500 mls @ 999 mls/hr IV ONCE ONE Stop: 11/03/18 05:40 Lactated Ringer's (Lr) 1,000 mls @ 150 mls/hr IV .Q6H40M [facility] Misoprostol (Cytotec) 50 mcg BC Q4HR SIMA Last Admin: 11/03/18 03:36 Dose: Not Given Ondansetron HCl (Zofran Inj) 4 mg IVP Q4HR PRN PRN Reason: Nausea / Vomiting Polyethylene Glycol (Miralax) 17 gm PO DAILY PRN PRN Reason: Bowel Protocol Last Admin: 11/02/18 16:37 Dose: 17 gm Sodium Chloride (Normal Saline Flush 0.9%) 10 ml IVP 0100,0900,1700 SIMA Last Admin: 11/03/18 03:35 Dose: Not Given Sodium Chloride (Normal Saline Flush 0.9%) 10 ml IVP PRN PRN PRN Reason: NEEDED PER PROVIDER ORDERS Last Admin: 11/03/18 02:58 Dose: 10 ml Allergies/Adverse Reactions: Allergies Allergy/AdvReac Type Severity Reaction Status Date / Time No Known Drug Allergies Allergy Verified 05/14/17 19:18 Anes History & Medical History - Anesthetic History Family history of Anesthesia Complications: Denies Family history of Malignant Hyperthermia: Denies - Medical History Cardiovascular: reports: None Pulmonary: reports: None Gastrointestinal: reports: None Urinary: reports: None Neuro: reports: None Musculoskeletal: reports: None Endocrine/Autoimmune: reports: None Blood Disorders: reports: None Skin: reports: None Smoking Status: Former smoker (Quit 9 months ago) Psychosocial: reports: No issues indicated - Obstetrical History : 1 Parity: 0 Events: positive: None Complications: positive: None Exam General: Alert, Oriented x3, Cooperative, No acute distress Dental: WNL Mouth Openin Fingerbreadth Neck Mobility: Normal Mallampati classification: II Thyromental Distance: 4-6 cm Respiratory: Lungs clear, Normal breath sounds, No respiratory distress, No accessory muscle use Cardiovascular: Regular rate, Normal S1, Normal S2, No murmurs Mental/Cognitive Status: Alert/Oriented X3, Normal for patient Plan Anesthesia Type: Epidural Consent for Procedure(s) Verified and Reviewed: Yes Code Status: Attempt Resuscitation ASA classification: 2-Mild systemic disease Is this case an emergency?: No
[2018-11-03] MEDS ORDERED: ONDANSETRON 4 MG/2 ML VIAL IVP PRN (05:34)
[2018-11-03] MEDS ORDERED: NALOXONE 0.4 MG/ML VIAL IVP PRN (05:34)
[2018-11-03] MEDS ORDERED: fent/BUPIV 2 MCG/0.125% 250 ML EP PRN (05:34)
[2018-11-03] MEDS ORDERED: NALBUPHINE 10 MG/ML AMP IVP PRN (05:34)
[2018-11-03] MEDS: LACTATED RINGERS 1,000 ML IV SCH ×3 (06:06→11:16)
[2018-11-03] MEDS ORDERED: SODIUM CHLORIDE FLUSH 0.9% 10 ML SYRINGE ONE ×2 (06:30→06:46)
[2018-11-03] MEDS: ePHEDrine 50 MG/ML VIAL IVP PRN ×2 (06:31→06:37)
--- NOTE | 2018-11-03 07:57 | PROVIDER PROGRESS NOTE ---
Labor Progress Note - Uterine Monitoring Uterine Monitoring Mode: positive: External toco Contraction Frequency (min/apart): 2-4 Contraction Intensity: positive: Moderate Uterine Resting Tone: positive: Soft - Monitoring Monitor Mode: positive: External ultrasound Heart Rate Baseline: 140 Heart Rate Variability: positive: Moderate (6-25 bmp) Accelerations: positive: Present, 15x15 Decelerations: positive: None Strip Review: positive: Category I - Vaginal Exam Dilation (in cm): deferred - Labor Progress Note Labor Progress Note/Additional Text: TC from bedside RN re: pt discomfort, increased; received single dose of IV fentanyl 50mcg w/o significant relief; did not sleep long s/p receipt of hydroxyzine, has not tried NO2, interested; Reviewed options for pain management w/ RN, ok for all options, including epidural placement now. RN articulated full understanding
--- NOTE | 2018-11-03 07:59 | PROVIDER PROGRESS NOTE ---
Labor Progress Note - Uterine Monitoring Uterine Monitoring Mode: positive: External toco Contraction Frequency (min/apart): 2-4 Contraction Intensity: positive: Moderate to strong Uterine Resting Tone: positive: Soft - Monitoring Monitor Mode: positive: External ultrasound Heart Rate Baseline: 140 Heart Rate Variability: positive: Moderate (6-25 bmp) Accelerations: positive: Present, 15x15 Decelerations: positive: None Strip Review: positive: Category I - Vaginal Exam Dilation (in cm): deferred - Labor Progress Note Labor Progress Note/Additional Text: TC from RN to inform me that pt would like epidural. Pt stable, status stable, Cat I. Ok for epidural
--- NOTE | 2018-11-03 08:00 | PROVIDER PROGRESS NOTE ---
Labor Progress Note - Uterine Monitoring Uterine Monitoring Mode: positive: External toco Contraction Frequency (min/apart): 2-4 Contraction Intensity: positive: Moderate Uterine Resting Tone: positive: Soft - Monitoring Monitor Mode: positive: External ultrasound Heart Rate Baseline: 140 Heart Rate Variability: positive: Moderate (6-25 bmp) Accelerations: positive: Present, 15x15 Decelerations: positive: None Strip Review: positive: Category I - Labor Progress Note Labor Progress Note/Additional Text: TC from RN to inquire about fluid administration prior to epidural placement: 500mL bolus, 150mL/hr thereafter; fetus stable, cat I, mother stable, but uncomfortable, desires epidural placement, anesthesia notified
--- NOTE | 2018-11-03 08:11 | PROVIDER PROGRESS NOTE ---
Labor Progress Note - Uterine Monitoring Uterine Monitoring Mode: positive: External toco Contraction Frequency (min/apart): 2-4 Contraction Intensity: positive: Moderate to strong Uterine Resting Tone: positive: Soft - Monitoring Monitor Mode: positive: External ultrasound Heart Rate Baseline: 170 Heart Rate Variability: positive: Moderate (6-25 bmp) Accelerations: positive: Present, 15x15 Decelerations: positive: None Strip Review: positive: Category II - Vaginal Exam Dilation (in cm): 7-8 Effacement (%): 100 Station: 0 - Labor Progress Note Labor Progress Note/Additional Text: TC from RN to evaluate pt @ 0730, FHTs tachycardic since 0600 w/ placement of epidural; first notification of concern @ 0730. Pt received epidural. BPs decreased to faviola in 80s/30s, given ephedrine x3, maternal tachycardia to 140s s/p administration of ephedrine. I presented to bedside w/in 5 minutes of telephone call & requested evaluation by Dr. Bertrand. tachycardia noted since epidural placement @ 0600. Dr. Bertrand to bedside for evaluation. SVE 7- 8/100/0, BBOW AROMed for small amt CAF. Baseline now decreased to 160bpm, +accels, no decels, mod daniela; TOCO: UCs q 4 min x80 seconds. Reviewed clinical scenario w/ pt, partner, RN @ bedside & Dr. Bertrand. Presently, we will continue to monitor; if baseline increases again, will re-evaluate for expedited delivery. Plan cord gas collection regardless of mode of delivery.
--- NOTE | 2018-11-03 08:23 | PROVIDER PROGRESS NOTE ---
Labor Progress Note - Uterine Monitoring Uterine Monitoring Mode: positive: External toco Contraction Intensity: positive: Strong Uterine Resting Tone: positive: Soft - Monitoring Monitor Mode: positive: External ultrasound Heart Rate Baseline: 155 Heart Rate Variability: positive: Moderate (6-25 bmp) Accelerations: positive: Present, 15x15 Decelerations: positive: None Strip Review: positive: Category I - Vaginal Exam Dilation (in cm): 7-8 Effacement (%): 100 Station: 0 - Labor Progress Note Labor Progress Note/Additional Text: S: Rebekah is comfortable w/ her epidural in place. Clifford is present @ the bedside & is supportive. O: AAOx3, NAD WA gravid female VS: 104/52; HR 118 EFM: BL 155bpm, +accels, no decels, mod daniela TOCO: UCs q 7 minutes x80 seconds SVE: deferred for now, presumed unchanged from previous 7-8/100/0 A: 28 y/o @ 39w1d by first trimester US, induction of labor per pt request s/p effective cervical ripening w/ 3 doses buccal misoprostol GBS negative, AROM for small CAF @ 0800 FHTs cat I Adequate pain control w/ epidural anesthesia s/p ephedrine s/p epidural-related hypotension P: 1. Continue careful BP monitoring & careful FHTs monitoring 2. Once consistently category I x30 minutes, begin augmentation w/ IV Pitocin per protocol & titrate to adequate pattern per tocometry 3. Reassess cervical status 2 hours s/p establishment of adequate pattern by tocometry, earlier PRN 4. Encouraged maternal rest
--- NOTE | 2018-11-03 08:39 | CONSULTATION NOTE ---
Referring Provider Consult Date: 11/03/18 Chief Complaint - Chief Complaint Chief Complaint: tachy cardia History - Past Medical History Cardiovascular: reports: None Respiratory: reports: None Neuro: reports: None Endocrine/Autoimmune: reports: None GI: reports: None : reports: None Musculoskeletal: reports: None Derm: reports: None MRSA Hx?: No - POLST Patient has POLST: No Meds/Allgy - Home Medications Home Medications: Ambulatory Orders Medication Instructions Recorded Confirmed Cephalexin [Keflex] 500 mg PO Q6H #28 capsule 05/04/17 Ibuprofen [Motrin] 400 mg PO Q6H PRN #30 tablet 05/04/17 Cephalexin [Keflex] 500 mg PO QID #40 capsule 05/14/17 hydrOXYzine HCl [Hydroxyzine HCl] 50 mg IM ONCE 1 Days #1 vial 11/02/18 - Allergies Allergies/Adverse Reactions: Allergies Allergy/AdvReac Type Severity Reaction Status Date / Time No Known Drug Allergies Allergy Verified 05/14/17 19:18 Conclusion/Plan - Lab Results Fish Bones: 11/02/18 09:35 11/02/18 09:35
[2018-11-03] MEDS ORDERED: OXYTOCIN/SODIUM CHLORIDE 500 ML IV SCH (09:00)
--- NOTE | 2018-11-03 09:15 | PREOP HISTORY & PHYSICAL ---
DATE OF SERVICE: 11/03/2018 Physician: Neil Bertrand MD PATIENT IDENTIFICATION: The patient is a 28-year-old, G1, P0 female whose EDC is 11/09/2018. This makes her 39.1 weeks EGA. She had early visits and early ultrasound. She presents for an elective induction on 11/02/2018. CHIEF COMPLAINT: tachycardia. HISTORY OF PRESENT ILLNESS: The patient presented on 11/02/2018 for cervical ripening with induction. She initially was admitted, at which time her baseline was noted to be in the normal range with accelerations. She had cervical ripening with misoprostol. This morning because of pain considerations, she had an epidural placed at roughly 5:46 a.m. Prior to this, she had a baseline running in the 140s with good accelerations. Before the epidural, she received a 500 mL bolus. Following the epidural, she developed a drop in her blood pressures with minimum of 78/57, but most from the 90s/60s. She developed a tachycardia with maximums in the 180s. Because of the low blood pressure and tachycardia, she received a bolus of 1 liter of IV fluids as well as ephedrine two doses. Subsequent to this, her pressures have improved. The current pressures are running 110s/20s, with diastolics over 70s. Her baseline has decreased to the 160s. She shows variability with occasional decelerations which appeared to be early in nature. Her last cervical exam shows her to be 7-8 cm, 100%, 0 station, and vertex. Her temperature has been normal throughout. IMPRESSION 1. A 28-year-old G1, P0, 39.1 weeks. 2. tachycardia, probably secondary to hypotension, which is improved with blood pressure. This has been helped with IV fluid bolus, as well as ephedrine. 3. I currently doubt chorioamnionitis. She is group B strep negative, and she is afebrile. PLAN: We will continue to monitor at this time for progress; however, should she develop any more heart issues, we will recommend a section. TD: 11[facility]03/2018 08[facility]46 [facility]
--- NOTE | 2018-11-03 09:59 | PROVIDER PROGRESS NOTE ---
Labor Progress Note - Uterine Monitoring Uterine Monitoring Mode: positive: External toco Contraction Frequency (min/apart): difficult to assess Contraction Intensity: positive: Strong Uterine Resting Tone: positive: Soft - Monitoring Monitor Mode: positive: External ultrasound Heart Rate Baseline: 145 Heart Rate Variability: positive: Moderate (6-25 bmp) Accelerations: positive: Present, 15x15 Decelerations: positive: Variable (difficult to assesss character seconda ry to inability to trace contractions; IUPC placed as a result w/o incident) - Vaginal Exam Dilation (in cm): 8-9 Effacement (%): 100 Station: 0 (descends readily to +1 w/ uterine contraction) - Labor Progress Note Labor Progress Note/Additional Text: S: Rebekah is comfortable w/ her epidural. She is frustrated because she hasn't been able to sleep. O: AAox3 NAD WA gravid female VSS: BP 109/57, HR 89bpm EFM BL 145bpm, + accels, decels to faviola in 120s w/ spontaneous return to baseline <60 seconds, unable to characterize secondary to unable to trace uterine contractions reliably, mod variability TOCO: unable to reliably trace uterine contractions; IUPC placed w/o incident to assess contraction activity & promote appropriate Pitocin titration SVE: 8-9/100/0, descends readily to +1 w/ uterine contraction; CAF continues to leak, position TAI A: 28 y/o @ 39w1d, elective induction of labor per pt request s/p effective prostaglandin cervical ripening w/ 3 total doses of misoprostol Pitocin augmentation, advanced dilatation w/ progressive cervical change FHTs presently cat II w/o evidence of hypoxemia GBS negative, AROM x2 hours, afebrile, CAF Adequate pain control w/ epidural anesthesia P: 1. Utilize IUPC to titrate pitocin per protocol 2. Reassess pt 2 hours s/p establishment of adequate labor pattern by MVU, not before 3. Dr. Jerzy MD, to review EFM strip 4. Reviewed plan of care w/ pt and RN team @ bedside; reviewed optimal maternal positioning, encouraged maternal rest, discouraged superfluous SVE
[2018-11-03] MEDS: DOCUSATE SODIUM 100 MG CAPSULE PO SCH (11:09)
[2018-11-03] MEDS ORDERED: miSOPROStol 200 MCG TABLET ONE (11:32)
--- NOTE | 2018-11-03 12:40 | DELIVERY NOTE ---
Delivery Note - Labor Labor: positive: Augmented by oxytocin - Delivery Method Delivery Method: positive: Spontaneous vaginal delivery - Cervical Ripening Method Cervical Ripening Method: positive: Misoprostil (misoprostol x3 buccal doses of 50mcg, then entered active labor w/ 7cm dilatation @ 0800) - Presentation Presentation: positive: Vertex, Compound (L hand), TAI - right occiput anterior - Nuchal Cord Nuchal Cord: positive: None (cord avulsed w/ delivery of body; side clamped <30 seconds s/p delivery when cord noticed, minimal EBL from cord) - Anesthetic Anesthetic Type: - Amniotic Fluid Description Amniotic Fluid Description: positive: Clear (AROM @ 0800, for a total ruptured duration of 4 hours, 25 minutes, afebrile t/o) - Episiotomy Type Episiotomy Type: positive: None - Laceration Laceration: positive: 1st degree, Vaginal - Suture Suture Type: positive: Vicryl Suture Size: positive: 2-0 - Delivery Outcome Delivery Outcome: positive: Livebirth - [place]: positive: Placed in direct skin contact with mother, Suctioned, Bulb syringe, Stimulated, Warmed, [place] used [place] sex: positive: Male - Cord Cord: positive: 3 vessels, Other (avulsion w/ delivery of body) - Placenta Placenta: positive: Intact, Spontaneous - Estimated Blood Loss Estimated Blood Loss (in cc): 450 - Post Delivery Events Post Delivery Events: positive: No post delivery events - Delivery Comments (Free Text/Narrative) Delivery Comments (Free Text/Narrative): Rebekah Duran is a 28 y/o [id number] who presented for preinduction cervical ripening @ 39 weeks' EGA for IOL per pt request. She received 3 doses of buccal misoprostol & then elected to try to sleep. She received 50mg IM vistaril w/o significant relief or ability to really rest. She received 1 dose of IV fentanyl & utilized NO2 very briefly & then elected epidural placement, which occurred @ 0600. Shortly thereafter, she experienced some reactive hypotension & had tachycardia that persisted x2 hours, during which time she was administered 10mg total ephedrine to maintain BP. She underwent AROM for CAF @ 0800 @ 7cm dilatation. FHTs monitored electronically & cat I-II w/o evidence of hypoxemia. IUPC placed to promote appropriate titration of Pitocin infusion @ 0930, Pitocin infusion initiated for infrequent uterine contractions & titrated to maximum infusion rate of 4mU/min. Pt was found to be complete w/ urge to bear down @ 1119, for a total first stage duration of 5 hours, 19 minutes. Rebekah pushed w/ spontaneous urge & direction to viable male in TAI position w/ compound L hand @ 1225, for a total 2nd stage duration of 1 hour, 6 minutes. Infant vigorous w/ spontaneous, lusty cry. Placed to maternal abd for drying/stim. Cord assessed immediately s/p delivery & noted to have avulsed w/ delivery of body, very short. side of cord clamped immediately, HR 140bpm, actively crying w/ spontaneous respirations, apgars 8/9. Active management of the 3rd stage w/ Pitocin in IV fluids. Placenta delivered spontaneously & intact, Mauro, @ 1227, for a total 3rd stage duration of 2 minutes. FF @ U. Vagina & perineum inspected & first degree introital laceration noted, repaired under epidural anesthesia w/ 2 stitches of 2-0 vicryl. Hemostatic & well-approximated. EBL 450mL. Mother & infant stable, infant actively rooting @ breast w/in 10 minutes of delivery. Weight pending.
[2018-11-03] MEDS ORDERED: MAGNESIUM HYDROXIDE 2,400 MG/30 ML UDC PO PRN (12:50)
[2018-11-03] MEDS ORDERED: HYDROCORTISONE 1% CREAM 28 GM TUBE PR PRN (12:50)
[2018-11-03] MEDS ORDERED: WITCH HAZEL/GLYCERIN 1 EACH MED..PAD TOP PRN (12:50)
[2018-11-03] MEDS: ACETAMINOPHEN 325 MG TABLET PO PRN ×2 (14:26→20:35)
[2018-11-03] MEDS: CELECOXIB 100 MG CAPSULE PO SCH (21:39)
[2018-11-04] MEDS: ACETAMINOPHEN 325 MG TABLET PO PRN ×2 (03:11→09:19)
[2018-11-04] MEDS: DOCUSATE SODIUM 100 MG CAPSULE PO SCH ×2 (09:18→21:29)
[2018-11-04] MEDS: CELECOXIB 100 MG CAPSULE PO SCH ×2 (09:18→21:29)
--- NOTE | 2018-11-04 23:20 | PROVIDER PROGRESS NOTE ---
Subjective - Prog Note Date Prog Note Date: 11/04/18 Prog Note Time: 12:30 - Subjective Pt reports feeling: Improved Subjective: Rebekah is doing well. She is ambulating & voiding w/o difficulty or discomfort. She denies incontinence. She is passing flatus & tolerating a regular diet. She denies any discomfort. She reports minimal lochia rubra. Her infant is receiving formula supplementation for some glycemic concerns secondary to evaluation r/t macrosomia. She is leaking colostrum and has been able to get him latched without any difficulty. She is not planning to return to work & is not planning another in the near future. Her , Clifford, is extremely involved & supportive. Objective - Vital Signs/Intake & Output Reviewed Vital Signs: Yes Vital Signs: Vital Signs x48h Temp Pulse Resp BP Pulse Ox 11/04/18 21:30 36.6 C 99 18 126/70 99 11/04/18 18:00 36.8 C 16 109/86 H Intake & Output: Intake & Output 11/01/18 11/02/18 11/03/18 11/04/18 23:59 23:59 23:59 23:59 Intake Total 2375 1999 Output Total 1400 Balance 975 2000 - Objective General Appearance: positive: No acute distress, Alert Eyes Bilateral: positive: Normal inspection, PERRL, EOMI Respiratory: positive: Chest non-tender, No respiratory distress, Breath sounds nml Cardiovascular: positive: Regular rate & rhythm, No murmur, No gallop Abdomen: positive: Non-tender, No distention, Other (FF U-2) Skin: positive: Color nml, No rash, Warm, Dry Extremities: positive: Non-tender, Full ROM, Nml appearance, Pedal edema. negative: Calf tenderness, Kristi's sign/cords Neurologic/Psychiatric: positive: Oriented x3, CN's nml (2-12), Motor nml, Sensation nml, Mood/affect nml Comments/Other: breasts b/l s, nt; nipples b/l intact & everted, colostrum actively dripping out b/l - Lab Results Fish Bones: 11/02/18 09:35 11/02/18 09:35 ABX Reporting Has patient been on IV antibiotics over the past 48 hours?: No Assessment/Plan - Problem List (1) (normal spontaneous vaginal delivery) Impression: 28 y/o s/p w/ vaginal laceration w/ repair, PPD #1, recovering well Normal uterine involution w/ formula supplementation secondary to concerns re: infant hypoglycemia Adequate pain control w/o analgesia 1. Continue routine pp care 2. support provided; encouraged she feed her baby human milk as much as possible & before offering formula, as able, to maintain glycemic control, reviewed nutritional composition and constituents, assisted w/ latch successfully b/l 3. pt requests d/c to boarder status this evening, stable for d/c
--- NOTE | 2018-11-04 23:25 | Discharge Plan ---
Discharge Plan Disposition: 01 Home, Self Care Condition: Good Diet: Regular Activity Restrictions: pelvic rest x6 weeks Shower Restrictions: Yes (no TUB BATHS) Driving Restrictions: No Instruction Topics: Vaginal After, Breastfeed How To, Exercises [place] Additional Instructions or Follow Up instructions: x1 week in outpatient clinic No Smoking: If you smoke, Please STOP! Call for help. Follow-up with: Suze Figueroa CNM, [facility] [Provider Admit Priv/Credential] -
--- NOTE | 2018-11-04 23:30 | DISCHARGE SUMMARY ---
"Discharge Summary Admit Date: 11/02/18 Discharge Date: 11/04/18 Discharging Provider: Cindy Condition at Discharge: Good Discharge Disposition: 01 Home, Self Care Discharge Facility [facility]: [facility] - DIAGNOSES Admission Diagnoses: 39 weeks' gestation Discharge Diagnoses with Status of Each Condition: vaginal laceration w/ repair - HPI History of Present Illness: Rebekah Duran is a 28 y/o [id number] who presented for logistic induction of labor w/ unfavorable cervical status @ 39 weeks' gestation. She received 3 doses of buccal misoprostol 50mcg each & subsequently entered active labor. She utilized IV opioids, self-administered inhaled NO2 & epidural anesthesia for pain relief. Shortly after epidural placement, Rebekah experienced bouts of intermittent hypotension, requiring management w/ ephedrine, w/ resultant & maternal tachycardia, which resolved spontaneously. She was evaluated by myself & by Dr. Bertrand &, as the tachycardia resolved, it was determined she could proceed with her trial of labor. She underwent AROM for CAF & IUPC placement to allow appropriate titration of Pitocin infusion. She received a maximal infusion rate of 4mU/min Pitocin over a period of 3 hours. She progressed to complete dilatation & delivered a viable male infant in TAI presentation w/ compound L hand vaginally over an intact perineum. She was found to have a vaginal laceration, which was repaired. She experienced spontaneous cord avulsion w/ delivery of 's body, and cord was clamped @ infant side immediately upon recognition. - CONSULTS | PROCEDURES Consultations: anesthesia, obstetrics Procedures: misoprostol preinduction cervical ripening epidural placement hypotension management w/ IV ephedrine AROM IUPC placement Pitocin infusion Repair of vaginal laceration - HOSPITAL COURSE Hospital Course: , Rebekah is doing well. She is ambulating & voiding w/o discomfort or difficulty. She denies incontinence. She is passing flatus & tolerating a regular diet. She reports minimal lochia rubra and no pain. She is w/o difficulty & is producing copious colostrum. She is not planning to return to work. She is not planning a short-interval . She has excellent social support. She is able to fully articulate pp warning s/sx, including pp depression s/sx, and pp aftercare instructions. She plans to f/u x1 week in the outpatient clinic, earlier PRN. She requests d/c to boarder status so that she can remain w/ her but not have to have her blood pressure checked x4 hours overnight. - ALLERGIES Allergies/Adverse Reactions: Allergies Allergy/AdvReac Type Severity Reaction Status Date / Time No Known Drug Allergies Allergy Verified 05/14/17 19:18 - PHYSICAL EXAM AT DISCHARGE General Appearance: positive: No acute distress, Alert Eyes Bilateral: positive: Normal inspection, PERRL, EOMI Respiratory: positive: Chest non-tender, No respiratory distress, Breath sounds nml Cardiovascular: positive: Regular rate & rhythm, No murmur, No gallop Abdomen: positive: Non-tender, No distention, Other (FF @ U-2) Skin: positive: Color nml, No rash, Warm, Dry Extremities: positive: Non-tender, Full ROM, Nml appearance, Pedal edema. negative: Calf tenderness, Kristi's sign/cords Neurologic/Psychiatric: positive: Oriented x3, CN's nml (2-12), Motor nml, Sensation nml, Mood/affect nml Physical Exam Other/Comments: breasts b/l s, nt; nipples b/l intact & everted; abundant colostrum actively leaking b/l - LABS Result Diagrams: 11/02/18 09:35 11/02/18 09:35 - FOLLOW UP Follow Up: x1 week in outpt clinic, earlier PRN - TIME SPENT Time Spent in Discharge (Minutes): 20"
[2018-11-05] MEDS: ACETAMINOPHEN 325 MG TABLET PO PRN (04:24)
[2018-11-05] MEDS: DOCUSATE SODIUM 100 MG CAPSULE PO SCH (09:18)
[2018-11-05] MEDS: CELECOXIB 100 MG CAPSULE PO SCH (09:18)
--- NOTE | 2018-11-05 12:04 | PROVIDER PROGRESS NOTE ---
Subjective - Subjective Subjective: On 11/05/2018 at 1147 I was notified by the OB RN assigned to the patient's care this morning. She stated the day shift nursing staff was waiting for the provider to present to discharge the patient and when speaking with the patient she told them Jena White CNM/[facility] had already presented last night and discharged her to [facility] status so she could stay with her infant, but she would be able to rest throughout the night. It is unclear if the night shift manager nursing staff were aware of the discharge order but the patient did have her vital signs taken at 0200 and 0800 this morning and she was medicated for pain throughout the night and this morning. The OB RN states they have been unable to contact the night shift manager RN assigned to her care last night to clarify but wanted to notify me as the application packaging specialist mental retardation nurse of the error that occurred as a delay in discharge of the patient. Updated discharge order placed. Objective - Vital Signs/Intake & Output Vital Signs: Vital Signs x48h Temp Pulse Resp BP Pulse Ox 11/05/18 08:00 36.8 C 90 16 123/63 99 Intake & Output: Intake & Output 11/02/18 11/03/18 11/04/18 11/05/18 23:59 23:59 23:59 23:59 Intake Total 2375 1999 Output Total 1400 Balance 975 1999 - Lab Results Fish Bones: 11/02/18 09:35 11/02/18 09:35
[2018-11-05 14:29] VITALS: BP 121/49
--- NOTE | 2018-11-05 14:36 | Labor Flowsheet ---
Labor Flowsheet Datetime Report Generated by CPN: 11/05/2018 14:36 Datetime: 11/05/2018 13:37 VITAL SIGNS NBP Sys/Arin/Mean (mmHg): 121 : 49 : 69 Pulse: 93 LaborFlag: Labor Datetime: 11/03/2018 20:34 SpO2 (%): 100 Datetime: 11/03/2018 14:00 ANESTHESIA Anesthesia Plans: Epidural Anesthesia Interview: E Datetime: 11/03/2018 12:25 Stage 2 Comments: Cord broke when fetus placed on mothers abdomen. Quickly clamped. Datetime: 11/03/2018 12:15 ASSESSMENT A Monitor Mode: External US FHR Baseline Rate : 155 Variability: Moderate 6-25 bpm Decelerations: Variable Category: Category II Comments: Baby Oxygen Amount (LPM): 10 Preparation for Delivery: Setup for Delivery; IUPC Removed Intact Datetime: 11/03/2018 12:13 Vital Sign Comments: Manual R brachial Datetime: 11/03/2018 12:01 Pain Presence: None/Denies Anesthesia Level Check: T8- Ribs Datetime: 11/03/2018 12:00 FHR Baseline Changes: No Baseline Change Accelerations: 15X15 Oxygen Method: Non-Rebreather STAGE 2 Pushing: Urge to Push Pushing Position: Pushing with Contractions Pushing Progress: Descent with Pushing; Perineal Bulging; Caput Noted Datetime: 11/03/2018 11:57 Anesthesia Comments: Pump turned off per CNM order Datetime: 11/03/2018 11:44 UTERINE ACTIVITY Monitor Mode: Internal Frequency (min): 3 Duration (sec): 40-60 Resting Tone (Palpate): Relaxed Resting Tone IUP (mmHg): 10 Intensity IUP (mmHg): 20 Pitocin Checklist: Uterus Palpates Soft between Contractions; IUPC Resting Tone less than 25 mmHg Contraction Comments: Pt pushing well with ctx Actions for Decelerations: Other Datetime: 11/03/2018 11:32 Pain Assessment Comments: Pt states she feels urge to push, unable to tell where to push. Datetime: 11/03/2018 11:19 VAGINAL EXAM Dilatation (cm): 10.0 Effacement (%): 100 Station: 1 Exam by: K Anders, RN Datetime: 11/03/2018 10:52 COMMUNICATION Communication: Provider at Bedside Provider Notified (Name): M Cantor, X RAY DEVELOPING MACHINE OPERATOR Datetime: 11/03/2018 10:40 MEDICATIONS Pitocin (milliunits): Increased to @ 4 Datetime: 11/03/2018 10:33 PAIN Pain Scale: 6 Pain Type: Contraction Pain Location: Abdomen Pain Coping: Talking Through Contractions; Writhing Comfort Measures: Anesthesia Notified Datetime: 11/03/2018 10:30 Stites Units (mmHg): 30 Datetime: 11/03/2018 10:15 Quality: Strong Datetime: 11/03/2018 10:00 Temperature (C): 36.8 Datetime: 11/03/2018 09:48 Patient Position/Activity: High Fowlers Patient Care Comments: Throne position Datetime: 11/03/2018 09:45 Monitor Interventions for UA: [place]aker Adjusted Datetime: 11/03/2018 09:30 Pain Relief Measures: NETSUITE CONSULTANT Use Datetime: 11/03/2018 09:02 Communication Comments: Not ified provider of pt status. Datetime: 11/03/2018 08:39 Respirations: 18 Datetime: 11/03/2018 07:51 MATERNAL ASSESSMENT Level of Consciousness: Fully Conscious DTR's/Clonus: No Clonus Headache: Denies Breath Sounds, Left: Clear and Equal Breath Sounds, Right: Clear and Equal Nausea/Vomiting: Denies RUQ Epigastric Pain: Denies Datetime: 11/03/2018 07:46 Membrane Status: Ruptured Membranes Rupture Method: Artificial Amniotic Fluid Color: Clear Amniotic Fluid Amount: Small Datetime: 11/03/2018 07:39 I/O Interventions: Harvey Cath Inserted Datetime: 11/03/2018 07:30 Notification Reason: Status Update Datetime: 11/03/2018 06:45 Pattern: Normal: <= 5 Contractions in 10 Minutes Datetime: 11/03/2018 06:37 Magnesium/Antihypertensives: Ephedrine IV (mg) @ 5 Medication Comments: continued maternal hypotension/tachycardia. pt awake and alert Datetime: 11/03/2018 06:15 Monitor Interventions for FHR: Ultrasound Adjusted Datetime: 11/03/2018 05:50 Epidural Procedure: Loading Dose Datetime: 11/03/2018 05:37 PROCEDURE TIME OUT Procedure Verify: Correct Patient Identity; Accurate Procedure Consent Form; Agreement on Procedure to be Done; Correct Patient Position Epidural Positioning: Sitting Datetime: 11/03/2018 02:57 Analgesics/Sedatives: Fentanyl (mcg) @ Datetime: 11/02/2018 21:46 TEACHING Instructional Method: Verbal Plan of Care: Plan of Care Discussed; Induction Labor/Induction: Cervical Ripening Teaching Comments: Patient wants to discuss plan of care with provider. Will call LIDA White. Datetime: 11/02/2018 19:45 Unit Routine: Unit Personnel; Monitoring; Diet/Nutrition Services; Medications Medications: Cervical Ripening Related: Nutrition; Hydration; Activity and Rest Datetime: 11/02/2018 17:10 PATIENT CARE IV/Blood Work: IV Saline Locked Datetime: 11/02/2018 17:06 Temperature Route: Oral Datetime: 11/02/2018 13:40 Cervical Ripening Agents: Cytotec @ Datetime: 11/02/2018 12:18 Provider Reviewed Strip: Yes
== END 2018-11-05 13:45 | disposition home or self-care (01) | DRG 807 ==
LOC: WFO 08:37 → FBP 08:38 → WFO 08:51 → FBP 08:52
PROVIDERS: ADMIT Registered Nurse; ATTEND Registered Nurse
PROC: 3E0P7VZ Introduction of Hormone into Female Reproductive, Via Natural or Artificial Opening (ICD-10-PCS; 2018-11-02)
PROC: 10907ZC Drainage of Amniotic Fluid, Therapeutic from Products of Conception, Via Natural or Artificial Opening (ICD-10-PCS; 2018-11-02)
PROC: 10E0XZZ Delivery of Products of Conception, External Approach (ICD-10-PCS; principal; 2018-11-03)
PROC: 0HQ9XZZ Repair Perineum Skin, External Approach (ICD-10-PCS; 2018-11-03)
DX: O98.311 Other infections with a predominantly sexual mode of transmission complicating pregnancy, first trimester (principal); Z37.0 Single live birth; A59.9 Trichomoniasis, unspecified; O76 Abnormality in fetal heart rate and rhythm complicating labor and delivery; O26.53 Maternal hypotension syndrome, third trimester; O32.6XX0 Maternal care for compound presentation, not applicable or unspecified; O69.89X0 Labor and delivery complicated by other cord complications, not applicable or unspecified; Z3A.39 39 weeks gestation of pregnancy; Z87.891 Personal history of nicotine dependence
CPT/HCPCS: 80053; 81003; 82570; 84156; 85025; A9270; J3410; J7120; 81001; 87086

== ENCOUNTER 2018-12-29 08:00 | Outpatient (CLI) | payer MEDICAID | END 2018-12-29 23:59 | disposition home or self-care (01) | LOC: LAB 08:00 | PROVIDERS: ATTEND Registered Nurse | DX: Z12.4 Encounter for screening for malignant neoplasm of cervix (principal) | CPT/HCPCS: 36415; 84443 ==

== ENCOUNTER 2019-01-27 15:11 | Emergency (ER) | payer MEDICAID ==
[2019-01-27 15:16] VITALS: BP 129/70
--- NOTE | 2019-01-27 15:46 | ED Physician Documentation ---
PD HPI SKIN - Stated complaint Stated Complaint: L BREAST PX - Chief complaint Chief Complaint: General - History obtained from History obtained from: Patient - History of Present Illness Timing - onset: Today, Last night Timing - duration: Days (1/2) Timing - details: Gradual onset, Still present Location: Other (left inferolateral breast.) Quality / character: Painful, Discolored (red inferolaterally with some warmth as well.) Associated symptoms: No: Fever, Myalgias, N/V/D Contributing factors: Other () Similar symptoms before: Has not had sx before Review of Systems Constitutional: denies: Fever, Chills Respiratory: denies: Dyspnea, Cough GI: denies: Nausea, Vomiting PD PAST MEDICAL HISTORY - Past Medical History Cardiovascular: None Respiratory: None Neuro: None Endocrine/Autoimmune: None GI: None : None Musculoskeletal: None Derm: None - Past Surgical History Past Surgical History: No - Present Medications Home Medications: Ambulatory Orders Medication Instructions Recorded Confirmed Cephalexin [Keflex] 500 mg PO Q6H #28 capsule 01/27/19 Hydrocodone/Acetaminophen [[place] 1 each PO Q6H PRN #15 tablet 01/27/19 5-325 Tablet] Naproxen 500 mg PO BID #20 tablet 01/27/19 - Allergies Allergies/Adverse Reactions: Allergies Allergy/AdvReac Type Severity Reaction Status Date / Time No Known Drug Allergies Allergy Verified 01/27/19 15:16 - Social History Does the pt smoke?: No Smoking Status: Former smoker (Quit 9 months ago) Does the pt drink ETOH?: No Does the pt have substance abuse?: No - Immunizations Immunizations are current?: No - POLST Patient has POLST: No PD ED PE NORMAL - Vitals Vital signs reviewed: Yes - General General: Alert and oriented X 3, Well developed/nourished, Other (appears uncomfortable due to breast tenderness/swelling.) - Neck Neck: Supple, no meningeal sign, No adenopathy - Cardiac Cardiac: RRR, No murmur - Respiratory Respiratory: Clear bilaterally - Derm Derm: Normal color, Warm and dry, Other (left breast with redness, warmth, tenderness and firmness in inferolateral aspect. No abscess feel nor appearance. No discharge at nipple. ) Results - Vitals Vitals: Vital Signs - 24 hr 01/27/19 15:14 Temperature 36.5 C Heart Rate 73 Respiratory 20 Rate Blood Pressure 129/70 O2 Saturation 98 Oxygen O2 Source Room air PD MEDICAL DECISION MAKING - ED course Complexity details: considered differential, d/w patient Departure - Departure Disposition: 01 Home, Self Care Clinical Impression: Acute mastitis of left breast Condition: Stable Record reviewed to determine appropriate education?: Yes Instructions: ED Breast Infec Prescriptions: Cephalexin [Keflex] 500 mg PO Q6H #28 capsule Hydrocodone/Acetaminophen [[place] 5-325 Tablet] 1 each PO Q6H PRN #15 tablet PRN Reason: Pain Naproxen 500 mg PO BID #20 tablet Comments: Warm towels and gentle massage for the side of the breast to help promote drainage. Continue breast-feeding to help promote drainage from the ducts as well. The redness pain and swelling commonly are from an infection so we will add some anti-inflammatories and antibiotics. Refer to the enclosed prescriptions. Add Tylenol or hydrocodone if needed for pain. Recheck if not improving well over the next day or 2. Discharge Date/Time: 01/27/19 16:55
[2019-01-27] MEDS ORDERED: cephALEXin 250 MG CAPSULE PO STA (16:09)
[2019-01-27] MEDS ORDERED: NAPROXEN 250 MG TABLET PO STA (16:09)
[2019-01-27] MEDS ORDERED: HYDROcod/ACETAM 5/325 MG TABLET PO STA (16:09)
== END 2019-01-27 16:55 | disposition home or self-care (01) ==
LOC: ED 15:11
DX: N61.0 Mastitis without abscess (principal); Z87.891 Personal history of nicotine dependence
CPT/HCPCS: 99283; A9270

== ENCOUNTER 2019-03-06 15:25 | Emergency (ER) | payer SELFPAY ==
[2019-03-06 15:42] VITALS: BP 117/72
--- NOTE | 2019-03-06 16:09 | ED Physician Documentation ---
History of Present Illness - Stated complaint Stated Complaint: TOENAIL PAIN - Chief complaint Chief Complaint: Ext Problem - History obtained from History obtained from: Patient - Additonal information Additional information: Patient is a previously healthy 28-year-old female presenting with acute on chronic ingrown toenail of left great toe. Patient reports that it is swollen, red, and has been draining clear material. No other nail changes or involvement. No changes to strength, sensation, range of motion of toe or foot. No trauma. No other improving or worsening factors noted. Review of Systems Skin: denies: Rash, Lesions, Abrasion (s) Musculoskeletal: reports: Extremity pain Neurologic: denies: Focal weakness, Numbness PD PAST MEDICAL HISTORY - Past Medical History Past Medical History: Yes Cardiovascular: None Respiratory: None Neuro: None Endocrine/Autoimmune: None GI: None : None Musculoskeletal: None Derm: None - Past Surgical History Past Surgical History: No - Present Medications Home Medications: Ambulatory Orders Medication Instructions Recorded Confirmed Cephalexin [Keflex] 500 mg PO Q6H #28 capsule 03/06/19 - Allergies Allergies/Adverse Reactions: Allergies Allergy/AdvReac Type Severity Reaction Status Date / Time No Known Drug Allergies Allergy Verified 03/06/19 15:42 - Social History Does the pt smoke?: No Smoking Status: Never smoker Does the pt drink ETOH?: No Does the pt have substance abuse?: No - Immunizations Immunizations are current?: No - POLST Patient has POLST: No PD ED PE NORMAL - Vitals Vital signs reviewed: Yes - General General: Alert and oriented X 3, No acute distress, Well developed/nourished - HEENT HEENT: Atraumatic, Moist mucous membranes - Cardiac Cardiac: Strong equal pulses - Respiratory Respiratory: No respiratory distress - Derm Derm: Other (Significant callus and skin to lateral aspect of left great toenail area. Toenail cut short to this toe and surrounding erythema, drainage, and tenderness present. No other signs of abscess or lymphangitis present.) - Extremities Extremities: No deformity, No tenderness to palpate - Neuro Neuro: Alert and oriented X 3, No motor deficit, No sensory deficit - Psych Psych: Normal mood, Normal affect Results - Vitals Vitals: Vital Signs - 24 hr 03/06/19 15:34 Temperature 36.8 C Heart Rate 75 Respiratory 15 Rate Blood Pressure 117/72 O2 Saturation 97 Oxygen O2 Source Room air PD MEDICAL DECISION MAKING - ED course Complexity details: considered differential, d/w patient ED course: Patient has chronic ingrown toenail to the left great toe that is already opened and expressing serous material. No significant toenail changes noted otherwise. Patient does have areas of callus and skin to the area which could be cleaned off. Recommended appropriate hygiene and advised against any further nail cutting. Will also prescribe antibiotics. Discussed other supportive cares, podiatry and primary care follow-up and strict return precautions. Did entertain the possibility of cutting the toenail, but patient has tried this in the past without much success and does not want to try again. Feel this is appropriate. Departure - Departure Disposition: 01 Home, Self Care Clinical Impression: Toe infection, Ingrown left greater toenail Condition: Good Instructions: ED Toenail Ingrown Infec Abx Onl Prescriptions: Cephalexin [Keflex] 500 mg PO Q6H #28 capsule Comments: Recommend keeping clean with running water and soap only. Do not submerge in water. Recommend expressing pus if possible and not cutting nail, but cleaning away skin of the area. Please take antibiotics as instructed. Follow-up with podiatry or primary care physician in next to 3 days and return to ED sooner if experience worsening symptoms or you have other concerns.
== END 2019-03-06 16:47 | disposition home or self-care (01) ==
LOC: ED 15:25
DX: L08.9 Local infection of the skin and subcutaneous tissue, unspecified (principal); L60.0 Ingrowing nail
CPT/HCPCS: 99282; 99283